=== PATIENT | male | born 1950 | race Caucasian/White ===

== ENCOUNTER 2017-06-12 06:41 | Day surgery (SDC) | payer OTHER, MEDICARE ==
--- NOTE | 2017-06-07 06:52 | HP ---
DATE OF ADMISSION: 06/12/2017 HISTORY OF PRESENT ILLNESS: This is a 66-year-old male who is being admitted for outpatient surgical irrigation and debridement and removal of hardware for a postsurgical infection of the left elbow. The patient underwent a previous surgery on 12/26/2016, had a triceps tendon repair to the olecranon, which was anchored in with the suture anchors and notes that after the surgery, he started developing mild pain, but noticed increased skin changes and finally drainage in and around the wound areas. The patient did not have any specific treatment for a postsurgical infection. He states he did see doctors which felt that was not an infection, but was a mechanical problem. This was maintained until recently the patient was seen by a general surgeon, Dr. Ugalde and cultures were taken, found to have a staph infection, was referred to the orthopedic clinic for evaluation. In the orthopedic clinic, the patient's x-rays along with MRI and a CT scan was obtained. This showed the suture anchors within the olecranon bone area to have a radiolucency all around the anchors indicative of a loosening and probable deep pus type infection around the anchors area along with a permanent suture within the tendon. With the deep-seated infection and culture showing Staph infection, the patient is being scheduled today for outpatient irrigation, debridement, removal of the hardware, and the patient will be set up for an outpatient wound care program through physical therapy that will include a wound VAC for wound healing. The procedure was outlined to him in detail and it was noted that this will take quite some time to heal. He understands that and has consented to surgery. ALLERGIES: No known drug allergies. PAST MEDICAL HISTORY: Relatively healthy 66-year-old male. He notes no specific medical problems. Denies any high blood pressure, diabetes, or medical problems. The patient had a history of a collapsed lung that resolved with no problems or complications. PAST SURGICAL HISTORY: Positive. He has had previous appendix surgery. He has had heel fracture surgery along with ankle fusions and also the left elbow surgery on 12/26/2016. He notes no anesthesia problems or complications. He has a negative bleeding history, negative blood clot history. SOCIAL HISTORY: Tobacco use is positive, but he did state he quit 28 years ago. Alcohol use is occasional. PHYSICAL EXAMINATION: GENERAL: Reveals a well-developed, well-nourished, 66-year-old male in moderate distress. HEAD, EYES, EARS, NOSE, AND THROAT: Normocephalic. NECK: Supple. CHEST: Clear. The patient has no history of pneumonia or asthma. COR: Regular rate. ABDOMEN: Soft. : Intact. EXTREMITIES: Examination of the left elbow shows surgical incision with cellulitis and deep and multiple areas of punctate type abscess formations. RADIOGRAPHIC STUDIES: X-rays and CT scan shows positive radiolucencies within the olecranon bone and positive anchors within the bone themselves. ASSESSMENT: Postsurgical staph infection of the left elbow with deep bone infection/osteomyelitis and retained hardware. PLAN: Plan will be for the patient to undergo incision, debridement, removal of hardware, and will begin on postoperative wound care treatment program for deep- seated osteomyelitis of the left elbow. This is outlined to him. He understands procedure and has consented to surgery. MMODAL /[id number]
[~2017-06-12 06:41] MED LIST: Lactated Ringers 1,000 ML IV SCH; Lidocaine 1%/Sod Bicarbonate in NS 8.4% 1 ML Syringe PRN; Sodium Chloride 0.9% 10 ML Syringe FLUSH PRN
[2017-06-12] MEDS ORDERED: Propofol 200 MG/20 ML SDV ONE (07:14)
[2017-06-12] MEDS ORDERED: Midazolam 1 MG/ML 2 ML SDV ONE (07:14)
[2017-06-12] MEDS ORDERED: fentaNYL 250 MCG/5 ML SDV ONE (07:14)
[2017-06-12] MEDS ORDERED: Lidocaine 1% 4 ML ONE (07:14)
[2017-06-12] MEDS ORDERED: Lidocaine 1% 30 ML SDV ONE (07:17)
--- NOTE | 2017-06-12 07:27 | PCM.PREANE ---
Preanesthetic Assessment - Procedure Proposed Procedure: L elbow hardwhere removal and I&D - Anesthesia/Transfusion/Family Hx Anesthesia History: Prior Anesthesia Without Reaction Family History of Anesthesia Reaction: No Transfusion History: No Prior Transfusion(s) Intubation History: History of Difficulty Intubation - Review of Systems General: Fatigue Pulmonary: No Symptoms Cardiovascular: No Symptoms Gastrointestinal: No Symptoms Neurological: No Symptoms Other: Reports: None - Physical Assessment NPO Status Date: 06/11/17 NPO Status Time: 21:00 Pulse: 77 O2 Sat by Pulse Oximetry: 95 Respiratory Rate: 16 Blood Pressure: 136/96 Temperature: 98 F ASA Class: 2 Mental Status: Alert & Oriented x3 Airway Class: Mallampati = 2 Dentition: Reports: Normal Dentition Thyro-Mental Finger Breadths: 3 Mouth Opening Finger Breadths: 3 ROM/Head Extension: Full Lungs: Clear to Auscultation, Normal Respiratory Effort Cardiovascular: Regular Rate, Regular Rhythm - Allergies Allergies/Adverse Reactions: Allergies Allergy/AdvReac Type Severity Reaction Status Date / Time No Known Allergies Allergy Verified 06/11/17 12:59 - Blood Blood Available: No - Anesthesia Plan Pre-Op Medication Ordered: None - Acknowledgements Anesthesia Type Planned: General Anesthesia Pt an Appropriate Candidate for the Planned Anesthesia: Yes Alternatives and Risks of Anesthesia Discussed w Pt/Guardian: Yes Pt/Guardian Understands and Agrees with Anesthesia Plan: Yes PreAnesthesia Questionnaire HEENT History: Reports: Impaired Vision, Other (See Below) Other HEENT History: use of reading glasses Cardiovascular History: Reports: None Respiratory History: Reports: None Gastrointestinal History: Reports: None Genitourinary History: Reports: None 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 Musculoskeletal History: Reports: Other (See Below) Other Musculoskeletal History: osteomyelitis to bilateral heels and currently to left elbow Neurological History: Reports: None Psychiatric History: Reports: None Endocrine/Metabolic History: Reports: None Hematologic History: Reports: None Immunologic History: Reports: None Oncologic (Cancer) History: Reports: None Dermatologic History: Reports: None - Infectious Disease History Infectious Disease History: Reports: Other (See Below) Other Infectious Disease History: staph aureus - Past Surgical History Head Surgeries/Procedures: Reports: None HEENT Surgical History: Reports: None Cardiovascular Surgical History: Reports: None Respiratory Surgical History: Reports: None GI Surgical History: Reports: Appendectomy, Colonoscopy Female Surgical History: Reports: None Male Surgical History: Reports: None Endocrine Surgical History: Reports: None Neurological Surgical History: Reports: None Musculoskeletal Surgical History: Reports: Other (See Below) Other Musculoskeletal Surgeries/Procedures:: left elbow non healing surgical wound infected with staph aureus, bilateral foot/heel surgery Oncologic Surgical History: Reports: None Dermatological Surgical History: Reports: None - SUBSTANCE USE Smoking Status *Q: Former Smoker Second Hand Smoke Exposure: No Days Per Week of Alcohol Use: 2 Number of Drinks Per Day: 4 Total Drinks Per Week: 8 Recreational Drug Use History: No - HOME MEDS Home Medications: Home Meds Clindamycin HCl 300 mg PO TID 06/11/17 [History] L.acidoph,Paracasei, B.lactis [Probiotic] 1 cap PO DAILY 06/11/17 [History] Multivit-Minerals/FA/Lycopene [Men's Daily Formula Tablet] 1 tab PO DAILY [History] - CURRENT (IN HOUSE) MEDS Current Meds: Current Medications Lactated Ringer's (Ringers, Lactated) 1,000 mls @ 125 mls/hr IV ASDIRECTED SOLITARIO Stop: 06/12/17 23:00 Lidocaine/Sodium Bicarbonate (Buffered Lidocaine 1% In Ns 8.4%) 0.25 ml .XX ONETIME PRN PRN Reason: Prior to IV Start Stop: 06/12/17 18:00 Sodium Chloride (Saline Flush) 10 ml FLUSH ASDIRECTED PRN PRN Reason: Keep Vein Open Stop: 06/12/17 18:00 Discontinued Medications Fentanyl (Sublimaze) Confirm Administered Dose 250 mcg .ROUTE .STK-MED ONE Stop: 06/12/17 07:15 Lidocaine HCl (Xylocaine-Mpf 1%) Confirm Administered Dose 4 mls @ as directed .ROUTE .STK-MED ONE Stop: 06/12/17 07:15 Midazolam HCl (Versed 1 Mg/Ml) Confirm Administered Dose 2 mg .ROUTE .STK-MED ONE Stop: 06/12/17 07:15 Propofol (Diprivan 20 Ml) Confirm Administered Dose 200 mg .ROUTE .STK-MED ONE Stop: 06/12/17 07:15
[2017-06-12] MEDS ORDERED: Levofloxacin/Dextrose 5%-Water 500 MG in Premix Bag 1 BAG IV ONE (07:45)
[2017-06-12] MEDS ORDERED: Ketorolac 15 MG/ML SDV IVPUSH PRN (07:45)
[2017-06-12] MEDS ORDERED: Levofloxacin/Dextrose 5%-Water 750 MG in Premix Bag 1 BAG IV ONE (07:45)
[2017-06-12] MEDS ORDERED: Acetaminophen/HYDROcodone 325-5 MG Tab PO PRN (07:45)
[2017-06-12] MEDS ORDERED: Ondansetron 4 MG/2 ML SDV IVPUSH PRN (07:45)
[2017-06-12] MEDS ORDERED: Ondansetron 4 MG/2 ML SDV ONE (08:38)
[2017-06-12] MEDS: Iodine/Sodium Iodide 2% Tincture 30 ML Bottle ONE ×6 (08:49→09:48)
[2017-06-12] MEDS ORDERED: Morphine 15 MG Tab.ER PO ONE (08:55)
[2017-06-12] MEDS ORDERED: Ketamine 500 mg/10 ML MDV ONE (09:02)
[2017-06-12] MEDS ORDERED: Esmolol 100 MG/10 ML SDV ONE ×2 (09:23)
[2017-06-12] MEDS ORDERED: HYDROmorphone 1 MG/ML Syringe ONE (09:40)
[2017-06-12] MEDS ORDERED: diphenhydrAMINE 50 MG/ML SDV ONE (10:06)
[2017-06-12] MEDS ORDERED: HYDROmorphone 0.5 MG/0.5 ML Syringe IVPUSH PRN (10:09)
[2017-06-12] MEDS ORDERED: fentaNYL 100 MCG/2 ML SDV IVPUSH PRN (10:09)
--- NOTE | 2017-06-12 10:12 | PCM.POSTAN ---
POST ANESTHESIA ASSESSMENT - MENTAL STATUS Mental Status: Alert, Oriented - VITAL SIGNS Pulse Rate: 97 SaO2: 99 Resp Rate: 13 Blood Pressure: 172/93 Temperature: 100.1 F - RESPIRATORY Respiratory Status: Respiratory Rate WNL, Airway Patent, O2 Saturation Stable - CARDIOVASCULAR CV Status: Pulse Rate WNL, Elevated Blood Pressure - GASTROINTESTINAL GI Status: No Symptoms - PAIN Pain Score: 0 - POST OP HYDRATION Hydration Status: Adequate & Stable
[2017-06-12] MEDS ORDERED: fentaNYL 100 MCG/2 ML SDV ONE (10:16)
[2017-06-12] MEDS ORDERED: Labetalol 100 MG/20 ML MDV ONE ×2 (10:25)
[2017-06-12] MEDS ORDERED: diphenhydrAMINE 50 MG/ML SDV IVPUSH ONE (10:35)
[2017-06-12 13:08] VITALS: BP 143/85
--- NOTE | 2017-06-13 07:35 | OR ---
DATE OF OPERATION: 06/12/2017 SURGEON: Govind Powell MD PREOPERATIVE DIAGNOSIS: Staph infection, left elbow, with retained hardware, olecranon, and osteomyelitis. POSTOPERATIVE DIAGNOSIS: Staph infection, left elbow, with retained hardware, olecranon, and osteomyelitis. ANESTHESIA: General. OPERATION PERFORMED: 1. Incision and debridement of previous surgical incision area. 2. Removal of retained cortical bone anchors, SpeedBridge, with FiberWire; 4 anchors retrieved, left elbow. 3. Incision size, 8 cm in length and 4 cm in width. DESCRIPTION OF PROCEDURE: The patient was taken to the operative room in supine position. He was placed under general anesthesia. The left upper extremity was prepped and draped in a standard fashion. After prepping and draping, evaluation of the wound itself in this area of previous surgical incision found multiple punctate areas of granulation, pussy-type tissue coming in the length and over the olecranon area. After evaluation, it was opted to go ahead and do a sharp incisional debridement and removal of the skin surrounding this area, down to the bony surface of the olecranon. Once the deep area was approached, the infection granulation tissue was removed. FiberWire sutures were identified. The patient had 4 anchors placed into the bone, 2 distal and 2 at the tip of the olecranon. The FiberWire sutures were used to follow down to each anchor. Once each anchor was exposed and all the area was debrided of the infection tissue, the sutures were then cut enough to hold and grasp. By gentle firm traction, the olecranon proximal 2 anchors, the more lateral anchor came out in its entirety. The medial anchor was fragmented and was firmly fixed into the bone, such that it could not be screwed out. After multiple attempts of trying to open the anchor up and place the screwdriver for removal, it was unable to loosen the screw itself. It was opted to do a drilling-type technique. First it was under drilled down the center of the anchor and then overdrilled, drilling out the anchor in its entirety. Once that was completed, the operation proceeded to the area of the 2 distal anchors on the olecranon-ulna area. Both anchors were debrided with the sutures in place. Once debridement in the area of the previous drilling of the bone was noted, the anchors were gently freed up and the anchor was removed in its entirety, at the distal 2 levels. The identification of the small plastic tip was made on 3 of the anchors. The anchor that had to be drilled out, the plastic tip, was felt to be drilled out with the drill itself and therefore was not available. The area was thoroughly irrigated and continuous irrigation was used with iodine solution into the anchor sites area of bone. Angle curette was then used to debride each anchor site into the bone structure removing any type of the fibrous tissue that had developed with the infection. Once that was debrided at all 4 anchor sites, the area went through a final thorough irrigation and repeat curettage. This was done multiple times to ensure that the infection process that was present was hopefully loosened up and removed with this technique. The only question was the anchor site that was more on the lateral side, where the anchor had to be drilled out, it is possible that there may be a retained tip plastic fragment present in there, even though with multiple attempts to probe the area and try to remove anything that could be present, failed. The 3 anchor tips were easily identified. The proximal-medial anchor tip and the 2 distal anchor tips were positively identified. The operation then proceeded with final thorough irrigation of the wound areas and with the iodine solution, then the area was dried. The Allevyn sponge was then placed into the wound area for a wound VAC treatment program. Once that was in place, the Allevyn pack was then covered with Tegaderm, securing and closing off the wound itself. Soft dressings were applied over the elbow itself along with an Joe bandage. The tourniquet was dropped. The patient tolerated this whole procedure well and left the operating room in a stable condition to his room. The area of the incision was measured at 8 cm in length and varies between 3 to 4 cm in width. Also, note the patient had cultures taken at the beginning of the procedure once all the debridement was carried down to the bone, in and around the suture areas that were present with the FiberWire. These cultures were sent for laboratory studies. The patient will be placed on Levaquin IV for postoperative antibiotic treatment program. He tolerated this whole procedure well and left the operating room in a stable condition. ESTIMATED BLOOD LOSS: MMODAL /[id number]
== END 2017-06-12 12:50 | disposition home or self-care (01) ==
LOC: JD.SDS 06:41
PROVIDERS: ATTEND Specialist
DX: T84.69XA Infection and inflammatory reaction due to internal fixation device of other site, initial encounter (principal); B95.8 Unspecified staphylococcus as the cause of diseases classified elsewhere; M86.9 Osteomyelitis, unspecified; Z87.891 Personal history of nicotine dependence; Z90.49 Acquired absence of other specified parts of digestive tract; Z98.890 Other specified postprocedural states; Z79.899 Other long term (current) drug therapy
CPT/HCPCS: 20680; 87075; 87205; 93005; A9270; J1170; J1200; J1956; J2250; J2405; J3010; J7120; 00400; 87077; 87186; J2704